=== PATIENT | male | born 1985 | race Caucasian/White ===

== ENCOUNTER → 2017-06-20 | Outpatient (CLI) | payer OTHER ==
--- NOTE | 2017-06-20 17:41 | DIAGNOSTIC IMAGING REPORT ---
ABD/PELVIS WITHOUT FOR STONE HISTORY: 31 years-old Male CALCULUS OF KIDNEY acute bilateral flank pain with concern for kidney stone COMPARISON: None available TECHNIQUE: Multiple axial CT images of the abdomen and pelvis were obtained without the use of IV contrast. A dose lowering technique was used consistent with the principals of SHELLY. FINDINGS: Imaged lung bases are generally clear. There is no pneumatosis or pneumoperitoneum identified. Imaged inferior cardiac chambers are unremarkable. Evaluation of the solid abdominal organs is limited without the use of IV contrast. Within the limitations of the exam, the liver, spleen, pancreas, gallbladder and adrenal glands are within normal limits. Kidneys, ureters and bladder are within normal limits without renal calculi or obstructive uropathy. Aorta is normal in course and caliber without aneurysm. No bulky adenopathy identified. There is no bowel obstruction or focal bowel wall thickening identified. The appendix is not definitively seen. No secondary signs of acute appendicitis. Calcified nodules of the mid mesentery are seen measuring up to 5 mm in diameter with conglomerate foci measuring up to 1.7 cm in greatest dimension on image 246 of series 3. No associated tethering identified. Soft tissues are unremarkable. Bones appear intact. IMPRESSION: 1. No renal calculi or obstructive uropathy. 2. No bowel obstruction or focal bowel wall thickening. Appendix is not definitively seen, however no secondary signs of acute appendicitis. 3. Subcentimeter calcified nodules of the mid mesentery are seen measuring up to 5 mm suggesting calcified lymph nodes. The above report was generated using voice recognition software. It may contain grammatical, syntax or spelling errors. Electronically signed by: Dax Carroll M.D. 06/20/2017 5:39 PM Dictated Date/Time: 06/20/2017 5:28 PM
== END | disposition home or self-care (01) ==
LOC: C.CTS 17:17
PROVIDERS: ATTEND Student in an Organized Health Care Education/Training Program
DX: N20.0 Calculus of kidney (principal)

== ENCOUNTER → 2017-09-06 | Outpatient (CLI) | payer OTHER | END | disposition home or self-care (01) | LOC: C.LABSPEC 17:10 | PROVIDERS: ATTEND Nurse Practitioner Adult Health | DX: R30.0 Dysuria (principal) ==

== ENCOUNTER → 2017-09-20 | Outpatient (CLI) | payer OTHER ==
[~2017-09-20] MED LIST: GADAVIST IV PRN
--- NOTE | 2017-09-20 11:54 | DIAGNOSTIC IMAGING REPORT ---
ABDOMEN MRI COMBO, PELVIC MRI COMBO HISTORY: Right lower quadrant abdominal pain. TECHNIQUE: Multiplanar multisequence MRI of the abdomen and pelvis were performed both before and after the intravenous administration of 9 cc of Gadavist. COMPARISON STUDY: Abdomen and pelvis CT 06/20/2017. FINDINGS: The lung bases are clear. The liver, spleen, adrenal glands, gallbladder, pancreas, and kidneys are unremarkable. No retroperitoneal lymphadenopathy. 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 The bladder is unremarkable. No pelvic free fluid. No pelvic lymphadenopathy. Normal marrow signal intensity seen throughout the visualized osseous structures. Suboptimal evaluation for bowel pathology due to the motion artifact secondary to the MR technique. However, there is no definite bowel wall thickening or obstruction. The appendix is not identified and reportedly surgically absent. No abnormal enhancement. IMPRESSION: No significant abnormality within the abdomen or pelvis. Electronically signed by: Matt Shahid M.D. 09/20/2017 11:52 AM Dictated Date/Time: 09/20/2017 11:34 AM
== END | disposition home or self-care (01) ==
LOC: C.MRIBC 07:37
PROVIDERS: ATTEND Internal Medicine Gastroenterology
DX: R10.31 Right lower quadrant pain (principal)